=== PATIENT | female | born 1965 | race Caucasian/White ===

== ENCOUNTER → 2016-05-24 | Outpatient (CLI) | payer OTHER ==
[~2016-05-24] MED LIST: ACT30 PO; CHOL100010 PO; CRG25 PO; FRS/40 PO; LISI40TA PO; NVLGI SC; PANT40TA PO; [UNRECOGNIZED DRUG - OTHER] SQ
[2016-05-24 16:57] LABS: BLOOD UREA NITROGEN 14 mg/dl (7-18); BUN/CREATININE RATIO 18.9 (10-20); CALCIUM 8.5 mg/dl (8.5-10.1); CARBON DIOXIDE 28 mmol/L (21-32); CHLORIDE 101 mmol/L (98-107); CREATININE 0.72 mg/dl (0.60-1.20); GLUCOSE 256 mg/dl (70-99); POTASSIUM 3.6 mmol/L (3.5-5.1); SODIUM 139 mmol/L (136-145)
[2016-05-24 17:03] LABS: INR 2.1 (0.9-1.1); PROTHROMBIN TIME (PATIENT) 22.9 SECONDS (9.0-12.0)
[2016-05-24 17:04] LABS: ALKALINE PHOSPHATASE 88 U/L (45-117); ALT/SGPT 24 U/L (12-78); AST/SGOT 15 U/L (15-37)
[2016-05-25 06:02] LABS: ESTIMATED AVERAGE GLUCOSE 255 mg/dl; HA1C FLAG Normal (Normal)
== END | disposition home or self-care (01) ==
LOC: C.LABPBG 12:32
PROVIDERS: ATTEND Family Medicine
DX: E11.9 Type 2 diabetes mellitus without complications (principal); D68.59 Other primary thrombophilia

== ENCOUNTER → 2016-05-28 | Outpatient (CLI) | payer OTHER ==
--- NOTE | 2016-05-28 12:16 | DIAGNOSTIC IMAGING REPORT ---
THYROID ULTRASOUND HISTORY: Mass NECK MASS COMPARISON: None. FINDINGS: Right lobe: Maximum dimension 5.4 cm. Multinodular configuration. Nonspecific nodules measure up to 1.1 cm. Left lobe: Maximum dimension 5.1 cm. Multinodular configuration. Maximum dimension is 1.2 cm. Isthmus: No nodules. IMPRESSION: Findings consistent with a multinodular thyroid. No evidence for mass or collection at the patient's region of the palpable nodularity Electronically signed by: Donta Rowan M.D. 05/28/2016 12:14 PM Dictated Date/Time: 05/28/2016 12:12 PM
== END | disposition home or self-care (01) ==
LOC: C.ULTR 11:07
PROVIDERS: ATTEND Family Medicine
DX: R22.1 Localized swelling, mass and lump, neck (principal)

== ENCOUNTER → 2017-01-24 | Outpatient (CLI) | payer OTHER ==
[2017-01-24 20:05] LABS: BASO % 0.5 %; BASO ABS # 0.05 K/uL (0-0.2); COMPLETE YES; EOS % 1.6 %; HEMATOCRIT 43.8 % (37-47); IG% 0.3 %; LYMPH % 32.1 %; LYMPH ABS # 3.27 K/uL (1.2-3.4); MEAN CELL VOLUME 92.4 fL (80-100); MEAN CORPUSCULAR HEMOGLOBIN 31.2 pg (25-34); MEAN CORPUSCULAR HGB CONC 33.8 g/dl (32-36); MEAN PLATELET VOLUME 8.7 fL (7.4-10.4); MONO % 6.4 %; NEUT % 59.1 %; PLATELET COUNT 241 K/uL (130-400); RED BLOOD COUNT 4.74 M/uL (4.2-5.4)
== END | disposition home or self-care (01) ==
LOC: C.LAB 19:42
PROVIDERS: ATTEND Family Medicine
DX: J02.9 Acute pharyngitis, unspecified (principal)

== ENCOUNTER 2020-01-24 11:55 | Observation (INO) ==
--- NOTE | 2020-01-24 12:47 | Emergency Department Note ---
Impression & Plan Acute CVA (cerebrovascular accident), Left leg weakness ED Provider Note NAME: NIK WEBSTER AGE: 54 SEX: F : 1965 ARRIVES VIA: Walk-In INFORMANT: Patient, ED PROVIDER(S): Romeo Duque MD Chief Complaint: Left-sided weakness HPI: Patient does present with concern for left-sided weakness. The patient sta andi that this began on Friday evening she was driving a car. The patient states that she has had some ambulatory as dysfunction since then. Patient does have a prior history of stroke and states that she had comprehension issues at that time the patient is on Coumadin for history of stroke as well as a history of DVT. Patient denies any fevers, chest pains, shortness of breath, nausea or vomiting. Patient denies any known tick bites or history of Lyme's. The patient denies any recent falls head or neck pain. The patient denies any sensory deficits but does feel weak in her left upper and lower extremities. ROS: See HPI for pertinent positives and negatives. A total of 10 systems were reviewed and otherwise negative. Past medical history: See below Surgical history: See below Social history: See below Physical Exam: GENERAL: Wearing glasses and a mask. NAD, non-toxic. EYE EXAM: Normal conjunctiva. PERRL, no anisocoria and EOM's grossly intact w/o pain. [OROPHARYNX: Moist mucus membranes. Grossly normal dentition. [No exudate, posterior pharynx is clear, no tonsillar/uvular deviation or swelling. No cervical adenopathy, no submental, submandibular, or sublingual swelling.]] NECK: Supple, no nuchal rigidity, no adenopathy, non-tender. No signs of meningismus. [FROM of the neck with good chin to chest and neck extension. No stridor.] LUNGS: Clear to auscultation. Normal chest wall mechanics. HEART: NSR, no MRG. ABDOMEN: Abdomen soft, non-tender, normo-active bowel sounds, no masses, no rebound or guarding. BACK: No CVA TTP. SKIN: No rashes and no bruising. UPPER EXTREMITIES: Upper extremities are grossly normal. LOWER EXTREMITIES: Grossly normal, no edema. NEURO EXAM: A&O x3, cranial nerves II-XII grossly intact, normal speech, moves all 4 extremities with what appears to be normal bilateral upper extremity strength but does have right greater than left lower extremity strength. 4-5 left lower extremity and 5 out of 5 right lower extremity strength. Differential diagnoses: Infection, dehydration, metabolic abnormality, hypo/hyperglycemia, electrolyte disturbance, anemia, hypoxia, cardiac sources, intracerebral event, toxicologic, neurologic, as well as other pathologies. Course: Patient was seen and evaluated the bedside. Full history physical exam was performed. EKG: Indication: Stroke work-up Normal sinus rhythm, rate of 79, normal intervals, normal axis, no ST changes or T WI. Imaging Studies: Radiology results as stated below per my review in the radiologist's interpretation: NECK CTA HISTORY: Left-sided weakness. Stroke evaluation TECHNIQUE: Multiaxial CT images of the neck were performed following the intravenous administration of contrast to evaluate the major cervical vessels. Maximum intensity projection images were also obtained. All measurements were calculated based on NASCET criteria. A dose lowering technique was utilized adhering to the principles of ALARA. COMPARISON STUDY: None. FINDINGS: The aortic arch and proximal great vessels are widely patent. There is no significant stenosis, occlusion, or dissection identified within the bilateral common carotid, internal carotid, or vertebral arteries. Incidental note is made of a 1 cm left thyroid nodule. IMPRESSION: No significant stenosis, occlusion, or dissection identified within the carotid or vertebral arteries. ACT 112: Negative or not required by law. Electronically signed by: Vicente Ley M.D. 01/24/2020 2:24 PM Dictated: 01/24/20 1416 Transcribed: 01/24/20 1416 CTA ANGIOGRAPHY OF THE HEAD CLINICAL HISTORY: Stroke evaluation. COMPARISON STUDY: MRI of the brain July 22, 2005. TECHNIQUE: Helical axial images of the head were obtained following uneventful intravenous administration of Optiray 320. Sagittal and coronal reconstructions were viewed as well as maximal intensity projections on an independent 3-D workstation. Automated exposure control was utilized for the study. A dose lowering technique was utilized adhering to the principles of ALARA. FINDINGS: No acute intracranial hemorrhage, midline shift or mass effect is present. Brain volume is normal. Ventricular system is normal. Basilar cisterns are patent. There are no extra axial collections. Note is made of severe multifocal stenoses within the right cavernous carotid. Right A1 segment is diminutive. No central vessel occlusion is identified. The left M1, M2, A1 and A2 segments are patent. Posterior circulation is intact. There is no intracranial aneurysm. There is extensive plaque within the bilateral cavernous carotids. IMPRESSION: 1. Severe multifocal stenoses within the right cavernous carotid. Extensive plaque within the bilateral cavernous carotids. 2. No central vessel occlusion. No intracranial aneurysm. 3. Diminutive right A1 and left A2 segments. ACT 112: Negative or not required by law. Electronically signed by: Papito Carr M.D. 01/24/2020 2:30 PM Dictated: 01/24/20 1414 Transcribed: 01/24/[address] head/brain wo con CLINICAL HISTORY: Stroke evaluation LEFT-SIDED WEAKNESS. COMPARISON STUDY: No previous studies for comparison. TECHNIQUE: Axial CT of the brain is performed from the vertex to the skull base. IV contrast was not administered for this examination. A dose lowering technique was utilized adhering to the principles of ALARA. CT DOSE: FINDINGS: No intra or extra-axial mass lesions are visualized. There is no CT evidence of acute cortical infarction. There is no evidence of midline shift. There is no acute hemorrhage. No calvarial fractures are visualized. There are patchy white matter hypodensities likely on a small vessel basis. There is no evidence of pathologic ventricular dilatation. There is no evidence of acute sinusitis IMPRESSION: No acute intracranial findings ACT 112: Negative or not required by law. Electronically signed by: Tylor Louis M.D. 01/24/2020 2:15 PM Dictated: 01/24/201413 Transcribed: 01/24/20 [id number] Cardiac monitoring: An order was placed for continuous cardiac monitoring. The monitor shows a rate of 77 with sinus rhythm. MDM: Patient does present with left lower extremity weakness on exam but does feel left-sided weakness that has been ongoing since Friday. The patient's CT of the head is negative. CT angiography of the head neck does show multifocal stenoses of the right cavernous carotid as well as diminutive right A1 and left A2 segments. Given this and the patient's weakness I did speak with the on-call vascular specialist limit our check PA-C who stated that given the location this was not something that they would be able to manage if it required intervention. I did speak with general neurology Dr. Blanco of neurology at [facility]. He stated that again given the location and chronicity is unlikely to be something that would be intervened upon as it has not been shown to improve symptoms given the delayed presentation. He kindly reviewed the studies himself and still rec ommended the same. He did recommend a baby aspirin for the next 3 weeks. I did convey this to the hospitalist and the patient was admitted by Dr. Ryan. Patient has no white count H&H and platelet count. The patient's kidney function is unremarkable. Slightly subtherapeutic with an INR 1.8. Troponin not detectable. Lyme's negative. Rapid Covid and negative. Past Med/Surg History Medical History Acid reflux Anxiety Asthma DM (diabetes mellitus) HTN (hypertension) Social History Smoking Status: Never smoker Tobacco Type: Cigarettes Feels Safe at Home: Yes Allergies Allergies Allergy/AdvReac Type Severity Reaction Status Date / Time Penicillins Allergy Unknown RASH Verified 01/24/20 14:40 adhesive AdvReac Unknown RASH Verified 01/24/20 14:40 losartan AdvReac Unknown PARANOID Verified 01/24/20 14:40 Home Meds Home Medications Medication Instructions Recorded Confirmed carvedilol 25 mg PO DAILY #0 10/30/10 01/24/20 cholecalciferol (vitamin D3) 50 mcg PO DAILY #0 10/30/10 01/24/20 furosemide 40 mg PO DAILY #0 10/30/10 01/24/20 insulin detemir U-100 [Levemir 55 unit SUBCUT HS #0 10/30/10 01/24/20 U-100 Insulin] lisinopril 40 mg PO DAILY #0 10/30/10 01/24/20 pantoprazole 40 mg PO DAILY #30 10/30/10 01/24/20 carvedilol 12.5 mg PO DAILY 01/24/20 01/24/20 fluoxetine 40 mg PO DAILY 01/24/20 01/24/20 insulin lispro protamin-lispro 55 unit SUBCUT HS 01/24/20 01/24/20 [Humalog Mix 50-50 Insuln U-100] metformin 1,000 mg PO DAILY 01/24/20 01/24/20 venlafaxine 37.5 mg PO DAILY 01/24/20 01/24/20 warfarin [Jantoven] 5 mg PO DAILY 01/24/20 01/24/20 Results & Data (ED) Vital Signs Vital Signs - 24 hr 01/24/20 12:07 01/24/20 12:40 01/24/20 12:56 Temperature 36.9 C Temperature Source Oral Pulse Rate 82 76 77 Pulse Rate from SpO2 Sensor 77 77 Respiratory Rate 20 16 15 Respiratory Effort / Characteristics Non-Labored Respiratory Depth Normal Blood Pressure 165/94 H 166/85 H Blood Pressure Mean 117 104 Pulse Oximetry 94 96 96 Oxygen Delivery Method Room Air Sepsis Recent Fever Within 48 Hours No Sepsis New/Unexplained Change in Mental Status N/A Sepsis Action Taken by Nursing No Action Required 01/24/20 13:00 01/24/20 13:30 01/24/20 16:09 Temperature Temperature Source Pulse Rate 77 71 Pulse Rate from SpO2 Sensor 77 72 83 Respiratory Rate 15 15 Respiratory Effort / Characteristics Respiratory Depth Blood Pressure 158/98 H 180/100 H Blood Pressure Mean 113 114 Pulse Oximetry 97 95 96 Oxygen Delivery Method Sepsis Recent Fever Within 48 Hours Sepsis New/Unexplained Change in Mental Status Sepsis Action Taken by Nursing 01/24/20 16:30 01/24/20 17:00 01/24/20 17:30 Temperature Temperature Source Pulse Rate 79 86 80 Pulse Rate from SpO2 Sensor 79 Respiratory Rate 13 13 17 Respiratory Effort / Characteristics Respiratory Depth Blood Pressure 177/78 H 181/100 H Blood Pressure Mean 127 129 Pulse Oximetry 95 Oxygen Delivery Method Sepsis Recent Fever Within 48 Hours Sepsis New/Unexplained Change in Mental Status Sepsis Action Taken by Nursing 01/24/20 18:00 Temperature Temperature Source Pulse Rate 77 Pulse Rate from SpO2 Sensor Respiratory Rate 19 Respiratory Effort / Characteristics Respiratory Depth Blood Pressure Blood Pressure Mean Pulse Oximetry Oxygen Delivery Method Sepsis Recent Fever Within 48 Hours Sepsis New/Unexplained Change in Mental Status Sepsis Action Taken by Skilled Nursing Medications Current Medication List: was personally reviewed by me Laboratory Data Attestation: I reviewed the patient's lab results. Result diagrams: 01/24/20 12:41 01/24/20 12:41 Lab Results 01/24/20 01/24/20 01/24/20 Range/Units 12:41 12:41 12:41 WBC 10.32 (4.8-10.8) K/uL RBC 5.16 (4.2-5.4) M/uL Hgb 15.6 (12.0-16.0) g/dL Hct 47.0 (37-47) % MCV 91.1 (80-100) fL MCH 30.2 (25-34) pg MCHC 33.2 (32-36) g/dL RDW Std Deviation 45.9 (36.4-46.3) fL RDW Coeff of Tolu 13.9 (11.5-14.5) % Plt Count 254 (130-400) K/uL MPV 8.8 (7.4-10.4) fL Immature Gran % (Auto) 0.3 % Neut % (Auto) 65.9 % Lymph % (Auto) 26.5 % Humphreys % (Auto) 6.4 % Eos % (Auto) 0.7 % Baso % (Auto) 0.2 % Neut # (Auto) 6.81 H (1.4-6.5) K/uL Lymph # (Auto) 2.73 (1.2-3.4) K/uL Humphreys # (Auto) 0.66 H (0.11-0.59) K/uL Eos # (Auto) 0.07 (0-0.5) K/uL Baso # (Auto) 0.02 (0-0.2) K/uL Immature Gran # (Auto) 0.03 H (0.00-0.02) K/uL PT 18.5 H (9.0-12.0) Seconds INR 1.8 H (0.9-1.1) APTT 31.1 H (21.0-31.0) Seconds PTT Ratio 1.1 Sodium 138 (136-145) mmol/L Potassium 3.7 (3.5-5.1) mmol/L Chloride 102 (98-107) mmol/L Carbon Dioxide 28 (21-32) mmol/L Anion Gap 8.0 (3-11) BUN 13 (7-18) mg/dl Creatinine 0.87 (0.6-1.2) mg/dl Est Cr Clr Drug Dosing Not Reportable Est GFR ( Amer) 87.5 Est GFR (Non-Af Amer) 75.5 BUN/Creatinine Ratio 15.4 (10-20) Glucose 299 H (70-99) mg/dl Calcium 9.0 (8.5-10.1) mg/dl Magnesium 1.8 (1.8-2.4) mg/dl Total Bilirubin 0.7 (0.2-1) mg/dl AST 15 (15-37) U/L ALT 23 (12-78) U/L Alkaline Phosphatase 105 (45-117) U/L Troponin I < 0.015 (0-0.045) ng/ml Total Protein 7.1 (6.4-8.2) gm/dl Albumin 3.2 L (3.4-5.0) gm/dl Globulin 3.9 (2.5-4.0) gm/dl Albumin/Globulin Ratio 0.8 L (0.9-2) Lyme Disease IgG Ab (Negative) Lyme Disease IgM Ab (Negative) SARS-CoV-2 Ag (Rapid) (Negative) 01/24/20 01/24/20 Range/Units 12:41 16:40 WBC (4.8-10.8) K/uL RBC (4.2-5.4) M/uL Hgb (12.0-16.0) g/dL Hct (37-47) % MCV (80-100) fL MCH (25-34) pg MCHC (32-36) g/dL RDW Std Deviation (36.4-46.3) fL RDW Coeff of Tolu (11.5-14.5) % Plt Count (130-400) K/uL MPV (7.4-10.4) fL Immature Gran % (Auto) % Neut % (Auto) % Lymph % (Auto) % Humphreys % (Auto) % Eos % (Auto) % Baso % (Auto) % Neut # (Auto) (1.4-6.5) K/uL Lymph # (Auto) (1.2-3.4) K/uL Humphreys # (Auto) (0.11-0.59) K/uL Eos # (Auto) (0-0.5) K/uL Baso # (Auto) (0-0.2) K/uL Immature Gran # (Auto) (0.00-0.02) K/uL PT (9.0-12.0) Seconds INR (0.9-1.1) APTT (21.0-31.0) Seconds PTT Ratio Sodium (136-145) mmol/L Potassium (3.5-5.1) mmol/L Chloride (98-107) mmol/L Carbon Dioxide (21-32) mmol/L Anion Gap (3-11) BUN (7-18) mg/dl Creatinine (0.6-1.2) mg/dl Est Cr Clr Drug Dosing Est GFR ( Amer) Est GFR (Non-Af Amer) BUN/Creatinine Ratio (10-20) Glucose (70-99) mg/dl Calcium (8.5-10.1) mg/dl Magnesium (1.8-2.4) mg/dl Total Bilirubin (0.2-1) mg/dl AST (15-37) U/L ALT (12-78) U/L Alkaline Phosphatase (45-117) U/L Troponin I (0-0.045) ng/ml Total Protein (6.4-8.2) gm/dl Albumin (3.4-5.0) gm/dl Globulin (2.5-4.0) gm/dl Albumin/Globulin Ratio (0.9-2) Lyme Disease IgG Ab Negative (Negative) Lyme Disease IgM Ab Negative (Negative) SARS-CoV-2 Ag (Rapid) Negative (Negative) Administered Medications Discontinued Medications Aspirin (Aspirin Chew 324 Mg) 81 mg PO NOW STA Stop: 01/24/20 15:38 Last Admin: 01/24/20 16:10 Dose: 81 mg Documented by: [id number] Ioversol (Optiray 320 125ml) 120 ml IV ONCE ONE Stop: 01/24/20 14:04 Last Admin: 01/24/20 14:04 Dose: 120 ml Documented by: [id number] Warfarin Sodium (Warfarin Sod 5 Mg Tab) 5 mg PO ONE STA Stop: 01/24/20 17:02 Last Admin: 01/24/20 18:11 Dose: 5 mg Documented by: [id number] Discharge Plan Visit Data Chief Complaint: Neuro Symptoms/Deficit Stated Complaint: WEAKNESS ON LEFT SIDE,HYPERGLYCEMIA ED Provider: Romeo Duque Discharge Problem: Acute CVA (cerebrovascular accident), Left leg weakness Patient Disposition: Admitted As Inpatient Discharge Instructions Interventions: ED Discharge Assessment Last Done: 01/24/20 18:36 Forms Stand Alone Forms: [employer] Prescriptions Prescriptions: No Action furosemide 40 mg Tablet 40 mg PO DAILY Qty: 0 RF: 0 carvedilol 25 mg Tablet 25 mg PO DAILY Qty: 0 RF: 0 pantoprazole 40 mg Tablet,Delayed Release (Dr/Ec) 40 mg PO DAILY Qty: 30 RF: 0 lisinopril 40 mg Tablet 40 mg PO DAILY Qty: 0 RF: 0 Levemir U-100 Insulin 100 unit/mL Solution 55 unit SUBCUT HS Qty: 0 RF: 0 cholecalciferol (vitamin D3) 50 mcg (2,000 unit) Tablet 50 mcg PO DAILY Qty: 0 RF: 0 fluoxetine 40 mg capsule 40 mg PO DAILY RF: 0 carvedilol 25 mg tablet 12.5 mg PO DAILY RF: 0 venlafaxine 37.5 mg capsule,extended release 24hr 37.5 mg PO DAILY RF: 0 metformin 1,000 mg tablet 1,000 mg PO DAILY RF: 0 warfarin [Jantoven] 5 mg tablet 5 mg PO DAILY RF: 0 Humalog Mix 50-50 Insuln U-100 100 unit/mL (50-50) Suspension 55 unit SUBCUT HS RF: 0 Referrals Referrals: Veena Carney DO [Primary Care Provider] -
[2020-01-24 13:21] LABS: Basophils # (auto) 0.02 K/uL (0-0.2); Basophils % (auto) 0.2 %; Eosinophils # (auto) 0.07 K/uL (0-0.5); Eosinophils % (auto) 0.7 %; Hemoglobin 15.6 g/dL (12.0-16.0); Immature Granulocytes # (auto) 0.03 K/uL (0.00-0.02); Immature Granulocytes % (auto) 0.3 %; Lymphocytes # (auto) 2.73 K/uL (1.2-3.4); Lymphocytes % (auto) 26.5 %; Mean Corpuscular Hemoglobin 30.2 pg (25-34); Mean Corpuscular Hgb Conc 33.2 g/dL (32-36); Mean Corpuscular Volume 91.1 fL (80-100); Mean Platelet Volume 8.8 fL (7.4-10.4); Monocytes # (auto) 0.66 K/uL (0.11-0.59); Monocytes % (auto) 6.4 %; Neutrophils # (auto) 6.81 K/uL (1.4-6.5); Neutrophils % (auto) 65.9 %; Platelet Count 254 K/uL (130-400); RDW Coefficient of Variation 13.9 % (11.5-14.5); RDW Standard Deviation 45.9 fL (36.4-46.3); Red Blood Count 5.16 M/uL (4.2-5.4); White Blood Count 10.32 K/uL (4.8-10.8)
[2020-01-24 13:28] LABS: Alanine Aminotransferase 23 U/L (12-78); Albumin Level 3.2 gm/dl (3.4-5.0); Aspartate Aminotransferase 15 U/L (15-37); BUN Creatinine Ratio 15.4 (10-20); Blood Urea Nitrogen 13 mg/dl (7-18); Carbon Dioxide 28 mmol/L (21-32); Chloride 102 mmol/L (98-107); Est GFR (African American) 87.5; Est GFR (Non-African American) 75.5; Glucose 299 mg/dl (70-99); Magnesium 1.8 mg/dl (1.8-2.4); Potassium 3.7 mmol/L (3.5-5.1); Sodium 138 mmol/L (136-145)
[2020-01-24 13:31] LABS: INR 1.8 (0.9-1.1); Partial Thromboplastin Ratio 1.1; Partial Thromboplastin Time 31.1 Seconds (21.0-31.0); Prothrombin Time 18.5 Seconds (9.0-12.0)
[2020-01-24 13:33] LABS: Albumin Globulin Ratio 0.8 (0.9-2); Alkaline Phosphatase 105 U/L (45-117); Bilirubin,Total 0.7 mg/dl (0.2-1); Globulin 3.9 gm/dl (2.5-4.0); Total Protein 7.1 gm/dl (6.4-8.2); Troponin I < 0.015 ng/ml (0-0.045)
[2020-01-24 14:03] LABS: Lyme Ab IgG w/WB Rflx Negative (Negative); Lyme Ab IgM w/WB Rflx Negative (Negative)
[2020-01-24] MEDS ORDERED: OPTIRAY 320 125ml IV ONE (14:03)
--- NOTE | 2020-01-24 14:17 | CT Scan Report ---
CT head/brain wo con CLINICAL HISTORY: Stroke evaluation LEFT-SIDED WEAKNESS. COMPARISON STUDY: No previous studies for comparison. TECHNIQUE: Axial CT of the brain is performed from the vertex to the skull base. IV contrast was not administered for this examination. A dose lowering technique was utilized adhering to the principles of ALARA. CT DOSE: FINDINGS: No intra or extra-axial mass lesions are visualized. There is no CT evidence of acute cortical infarc tion. There is no evidence of midline shift. There is no acute hemorrhage. No calvarial fractures ar e visualized. There are patchy white matter hypodensities likely on a small vessel basis. There is no evidence of pathologic ventricular dilatation. There is no evidence of acute sinusitis IMPRESSION: No acute intracranial findings ACT 112: Negative or not required by law. Electronically signed by: Tylor Louis M.D. 01/24/2020 2:15 PM
--- NOTE | 2020-01-24 14:25 | CT Scan Report ---
NECK CTA HISTORY: Left-sided weakness. Stroke evaluation TECHNIQUE: Multiaxial CT images of the neck were performed following the intravenous administration o f contrast to evaluate the major cervical vessels. Maximum intensity projection images were also obta ined. All measurements were calculated based on NASCET criteria. A dose lowering technique was utili zed adhering to the principles of ALARA. COMPARISON STUDY: None. FINDINGS: The aortic arch and proximal great vessels are widely patent. There is no significant sten osis, occlusion, or dissection identified within the bilateral common carotid, internal carotid, or v ertebral arteries. Incidental note is made of a 1 cm left thyroid nodule. IMPRESSION: No significant stenosis, occlusion, or dissection identified within the carotid or vertebral arteries . ACT 112: Negative or not required by law. Electronically signed by: Vicente Ley M.D. 01/24/2020 2:24 PM
--- NOTE | 2020-01-24 14:31 | CT Scan Report ---
CTA ANGIOGRAPHY OF THE HEAD CLINICAL HISTORY: Stroke evaluation. COMPARISON STUDY: MRI of the brain July 22, 2005. TECHNIQUE: Helical axial images of the head were obtained following uneventful intravenous administr ation of Optiray 320. Sagittal and coronal reconstructions were viewed as well as maximal intensity p rojections on an independent 3-D workstation. Automated exposure control was utilized for the study. A dose lowering technique was utilized adhering to the principles of ALARA. FINDINGS: No acute intracranial hemorrhage, midline shift or mass effect is present. Brain volume is normal. Ventricular system is normal. Basilar cisterns are patent. There are no extra axial collectio ns. Note is made of severe multifocal stenoses within the right cavernous carotid. Right A1 segment i s diminutive. No central vessel occlusion is identified. The left M1, M2, A1 and A2 segments are ricks nt. Posterior circulation is intact. There is no intracranial aneurysm. There is extensive plaque wit hin the bilateral cavernous carotids. IMPRESSION: 1. Severe multifocal stenoses within the right cavernous carotid. Extensive plaque within the bilater al cavernous carotids. 2. No central vessel occlusion. No intracranial aneurysm. 3. Diminutive right A1 and left A2 segments. ACT 112: Negative or not required by law. Electronically signed by: Papito Carr M.D. 01/24/2020 2:30 PM
[2020-01-24] MEDS ORDERED: ASPIRIN CHEW 324 MG PO STA (15:37)
--- NOTE | 2020-01-24 16:01 | Electrocardiogram Report ---
Test Reason : Blood Pressure : / mmHG Vent. Rate : 079 BPM Atrial Rate : 079 BPM P-R Int : 154 ms QRS Dur : 082 ms QT Int : 420 ms P-R-T Axes : 053 009 057 degrees QTc Int : 481 ms Normal sinus rhythm Septal infarct , age undetermined Abnormal ECG When compared with ECG of 30-OCT-2010 18:32, Premature ventricular complexes are no longer Present Septal infarct is now Present Confirmed by Flo De La Cruz ([id number]) on 01/24/2020 4:01:07 PM Referred By: Veena Carney Confirmed By:Flo De La Cruz
--- NOTE | 2020-01-24 16:37 | History & Physical Report ---
Date of Service January 24, 2020 Assessment & Plan (1) CVA (cerebral vascular accident): Suspected - refused MRI due to anxiety, may have to be arranged outpatient at 611. TTE HbA1C and lipid panel in AM Start ASA 81mg PO daily Start atorvastatin 40 mg p.o. at bedtime Consult neurology (2) Thyroid nodule: Incidental pickup on CT scan of left thyroid nodule. Will get TSH +/- free T4 with AM labs. Follow-up with PCP. (3) DM (diabetes mellitus): Notably uncontrolled and patient taking medication as she wishes - takes both 50/50 and Lantus in the evening. HbA1c with a.m. labs. Hold Metformin due to IV contrast given for CTA Split lantus to 40 units BID Novolog: Goal BSG Range: Low 110 mg/dL, High 140 mg/dL Correction Factor: 10 mg/dL/unit INS:CHO Ratio: 1unit per 4 gms CHO consumed (4) HTN (hypertension): Continue lisinopril 40 mg p.o. daily, Lasix 40 mg p.o. daily, hydralazine as needed for systolic blood pressure greater than 180. (5) Acid reflux: Continue pantoprazole 40 mg p.o. daily (6) Anxiety: Continue venlafaxine and fluoxetine. (7) DVT prophylaxis: INR 1.8. Continue her usual warfarin dosing. Admission and Anticipated Discharge Date Admission Date: 01/24/2020 History of Present Illness Primary Care Provider: DO Rayne Perla Geoff is a 54 year old female who presents to the ER with left sided weakness. She reports her symptoms started on Friday. Initially found it hard to get out of the car after driving. Then noticed it was harder to get her left leg over the side of the bathtub. After this she has noticed her walking has been getting progressively worse and her daughter's boyfriend caught her 3 times yesterday. Reports feeling like her bones just disappear out of her left leg while walking. She denies any new numbness or pain (chronic diabetic neuropathy in fingers and toes). No change in speech/hearing/vision. She notes a prior "mini-stroke" 15 years ago with associated post cardiomyopathy which caused her memory and thinking to be impaired for around 6 months. Other than this no history of stroke or CVA. In the ER Head CTA concerning for severe multifocal stenosis in the right cavernous carotid and extensive plaque within the bilateral cavernous carotids. ER physician discussed this with neurology at [place] and reports no intervention required. Clearly outside of the range for TPA and contraindicated with warfarin use. Recommended aspirin 81 mg p.o. daily for 3 weeks. Allergies Allergy/AdvReac Type Severity Reaction Status Date / Time Penicillins Allergy Unknown RASH Verified 01/24/20 14:40 adhesive AdvReac Unknown RASH Verified 01/24/20 14:40 losartan AdvReac Unknown PARANOID Verified 01/24/20 14:40 Home Medications Medication Instructions Recorded Confirmed Type carvedilol 25 mg PO DAILY #0 10/30/10 01/24/20 History cholecalciferol (vitamin D3) 50 mcg PO DAILY #0 10/30/10 01/24/20 History furosemide 40 mg PO DAILY #0 10/30/10 01/24/20 History insulin detemir U-100 [Levemir 55 unit SUBCUT HS #0 10/30/10 01/24/20 History U-100 Insulin] lisinopril 40 mg PO DAILY #0 10/30/10 01/24/20 History pantoprazole 40 mg PO DAILY #30 10/30/10 01/24/20 History carvedilol 12.5 mg PO DAILY 01/24/20 01/24/20 History fluoxetine 40 mg PO DAILY 01/24/20 01/24/20 History insulin lispro protamin-lispro 55 unit SUBCUT HS 01/24/20 01/24/20 History [Humalog Mix 50-50 Insuln U-100] metformin 1,000 mg PO DAILY 01/24/20 01/24/20 History venlafaxine 37.5 mg PO DAILY 01/24/20 01/24/20 History warfarin [Jantoven] 5 mg PO DAILY 01/24/20 01/24/20 History Past Med/Surg History Medical History Acid reflux Anxiety Asthma DM (diabetes mellitus) HTN (hypertension) Social History Smoking Status: Never smoker Tobacco Type: Cigarettes Second Hand Exposure: Yes; Do You Dip or Chew Tobacco: No; Tobacco Cessation Education Requested by Patient: No Hx Alcohol Use: No Hx Substance Use: No Preferred Language: Jamaican Communication Ability: Effective Equities Trader Required: No Beliefs That Will Affect Care: None Current Living Situation: Spouse Feels Safe at Home: Yes Safety Concerns: Feels Safe At This Time Assistive Devices: None Review of Systems Review of Systems: All systems reviewed & are unremarkable except as noted in HPI & below Physical Exam Constitutional: well developed and well nourished; no acute distress Eyes: PERRL, conjunctivae normal, anicteric sclerae normal visual beltrán by confrontation and EOM intact bilaterally; no nystagmus ENMT: external ear and nose normal, oropharynx normal Neck: trachea midline, no thyromegaly Respiratory: normal respiratory effort, lungs clear to auscultation Cardiovascular: RRR, no murmur, no edema Gastrointestinal (Abdomen): normal bowel sounds, soft, nontender, no hepatosplenomegaly Musculoskeletal: no cyanosis or clubbing, extremities motor strength 5/5 Skin: no rashes, warm and dry Neurologic: moves all extremities, + focal motor deficit (Left hip flexion 4/5, knee flex ext 4/5, otherwise b/l LE 5/5) and awake; not confused Speech / Cognition: normal speech, no expressive aphasia and no receptive aphasia Motor/Sensory: + pronator drift (mild on left side); no tremor and no sensory deficit Cranial Nerves: PERRL, normal accommodation, EOM intact bilaterally, normal facial strength, tongue midline, able to rotate head bilaterally, able to elevate shoulders bilaterally, no nystagmus and symmetric palate elevation Psychiatric: A+Ox3, euthymic affect Results & Data Results & Data ([facility]) Vital Signs (Past 12 Hours) Vital Signs Temp Pulse Resp BP Pulse Ox 01/24/20 12:07 36.9 C 82 20 165/[address] head/brain wo con IMPRESSION: No acute intracranial findings CTA ANGIOGRAPHY OF THE HEAD IMPRESSION: 1. Severe multifocal stenoses within the right cavernous carotid. Extensive plaque within the bilateral cavernous carotids. 2. No central vessel occlusion. No intracranial aneurysm. 3. Diminutive right A1 and left A2 segments. NECK CTA IMPRESSION: No significant stenosis, occlusion, or dissection identified within the carotid or vertebral arteries. Medications Administered ER medications given: Aspirin 81 mg p.o. ECG Indication: other (Suspected CVA) Rate (beats per minute): 79 Rhythm: normal sinus Findings: no acute ischemic change Comparison ECG Date: from (October 30, 2010) Change: the following changes noted (PVCs no longer present) Code Status & VTE Plan Code Status Full VTE Prophylaxis Plan VTE Prophylaxis will be ordered: Yes PG Care Time/CCT Total # of Minutes Spent Total Time Spent with Patient: Total time spent is greater than 50% in coordination of care (as documented) at patient's floor/unit and/or counseling patient: Coding Level of Care Code 70064 OBS Care - Level 3 Diagnoses CVA (cerebral vascular accident) I63.9 Thyroid nodule E04.1 DM (diabetes mellitus) E11.9 HTN (hypertension) I10 Acid reflux K21.9 Anxiety F41.9 DVT prophylaxis Z29.9
[2020-01-24] MEDS ORDERED: WARFARIN SOD 5 MG TAB PO STA (17:01)
[2020-01-24] MEDS ORDERED: ACETAMINOPHEN 325 MG TAB PO PRN (19:33)
[2020-01-24] MEDS ORDERED: PHARMACIST DISCHARGE MED REC CONSULT PRN (19:33)
[2020-01-24] MEDS ORDERED: CARBOHYDRATES FOR HYPOGLYCEMIA PO PRN (19:33)
[2020-01-24] MEDS ORDERED: DEXTROSE 50% 50 ML SYRINGE IV PRN (19:33)
[2020-01-24] MEDS ORDERED: GLUCOSE 10 TABS/TUBE PO PRN (19:33)
[2020-01-24] MEDS ORDERED: POLYETHYLENE (MIRALAX) 17 GM PACK PO PRN (19:33)
[2020-01-24] MEDS ORDERED: GLUCAGON FOR INJ 1 MG VIAL SQ PRN (19:33)
[2020-01-24] MEDS ORDERED: GLUCOSE 40% GEL 15 GM TUBE PO PRN (19:33)
[2020-01-24] MEDS ORDERED: hydrALAZINE HCL 20 MG/ML VIAL IV PRN (20:52)
[2020-01-24] MEDS ORDERED: ATORVASTATIN 40 MG TAB PO SCH (21:00)
[2020-01-24] MEDS ORDERED: lisinopril 40 MG TAB PO SCH (21:00)
[2020-01-24] MEDS ORDERED: VENLAFAXINE HCL XR 37.5 MG CAPXR PO SCH (21:00)
[2020-01-24] MEDS: carvediloL 25 MG TAB PO SCH (21:07)
[2020-01-24] MEDS: INSULIN GLARGINE SOLOSTAR 100 UNITS/ML 3 ML PEN SC SCH (21:07)
[2020-01-24] MEDS: INSULIN ASPART 100 UNITS/ML 3 ML PEN SC SCH (21:09)
[2020-01-25 07:28] LABS: Estimated Average Glucose 283 mg/dl; Hemoglobin A1C 11.5 % (4.5-5.6)
[2020-01-25 07:29] LABS: Basophils # (auto) 0.03 K/uL (0-0.2); Basophils % (auto) 0.3 %; Eosinophils # (auto) 0.12 K/uL (0-0.5); Eosinophils % (auto) 1.3 %; Hematocrit (blood only) 43.9 % (37-47); Hemoglobin 14.6 g/dL (12.0-16.0); Immature Granulocytes # (auto) 0.03 K/uL (0.00-0.02); Immature Granulocytes % (auto) 0.3 %; Lymphocytes # (auto) 2.83 K/uL (1.2-3.4); Lymphocytes % (auto) 31.8 %; Mean Corpuscular Hemoglobin 30.4 pg (25-34); Mean Corpuscular Hgb Conc 33.3 g/dL (32-36); Mean Corpuscular Volume 91.3 fL (80-100); Mean Platelet Volume 8.5 fL (7.4-10.4); Monocytes # (auto) 0.54 K/uL (0.11-0.59); Monocytes % (auto) 6.1 %; Neutrophils # (auto) 5.36 K/uL (1.4-6.5); Neutrophils % (auto) 60.2 %; Platelet Count 243 K/uL (130-400); RDW Coefficient of Variation 13.9 % (11.5-14.5); RDW Standard Deviation 46.2 fL (36.4-46.3); Red Blood Count 4.81 M/uL (4.2-5.4); White Blood Count 8.91 K/uL (4.8-10.8)
[2020-01-25 07:36] LABS: INR 1.9 (0.9-1.1); Prothrombin Time 19.4 Seconds (9.0-12.0)
[2020-01-25] MEDS: INSULIN ASPART 100 UNITS/ML 3 ML PEN SC SCH ×2 (08:01→11:53)
[2020-01-25] MEDS: carvediloL 25 MG TAB PO SCH (08:01)
[2020-01-25] MEDS: INSULIN GLARGINE SOLOSTAR 100 UNITS/ML 3 ML PEN SC SCH (08:02)
[2020-01-25 08:04] LABS: BUN Creatinine Ratio 21.5 (10-20); Calcium 8.7 mg/dl (8.5-10.1); Creatinine Clr Calc Pharmacy 118.7 ml/min; Est GFR (African American) 116.1; Est GFR (Non-African American) 100.1; Potassium 3.4 mmol/L (3.5-5.1)
[2020-01-25 08:14] LABS: Thyroid Stimulating Hormone 1.04 uIu/ml (0.300-4.500)
[2020-01-25] MEDS ORDERED: PANTOprazole 40 MG TAB PO SCH (09:00)
[2020-01-25] MEDS ORDERED: ASPIRIN 81 MG ECTAB PO SCH (09:00)
[2020-01-25] MEDS ORDERED: FLUoxetine HCL 20 MG CAP PO SCH (09:00)
[2020-01-25] MEDS ORDERED: CHOLECALCIFEROL 1,000 UNITS 25 MCG TAB PO SCH (09:00)
[2020-01-25] MEDS ORDERED: FUROSEMIDE 40 MG TAB PO SCH (09:00)
--- NOTE | 2020-01-25 12:05 | XCELERA ---
[id number]
--- NOTE | 2020-01-25 13:27 | Neurology Consultation ---
Date of Consultation January 25, 2020 Assessment & Plan (1) HTN (hypertension): (2) DM (diabetes mellitus): (3) Stroke: Rayne Tellez is a 54 yo woman w/ PMH of anxiety, asthma, chronic warfarin usage, DM and HTN who p/t [facility] with acute onset of left sided weakness. Symptom localization: right lacunar Stroke mechanism: lacunar/lipohyalinosis Stroke WorkUp: - CT head: no hemorrhage, +hypodensity in the right internal capsule. - CTA head/neck: shows multifocal stenosis of the right cavernous ICA with notable intracranial atherosclerosis, no LVO, other high grade stenosis or aneurysm noted - MRI brain: pending (will get as an outpatient due to extreme claustrophobia, prefers [facility]) - TTE: EF 65-70%, mild LVH, mild MR, no PFO - Telemetry: pending - A1c: 11.5 - FLP: 137 - Troponin, TSH: negative, WNL Stroke Management: - Acute treatment: ASA - Continuous cardiac monitoring, 30 day event monitor as outpatient if telemetry here unrevealing - Vitals, Neurochecks, NIHSS per unit routine - BP parameters: SBP CAP 180, restart home anti-hypertensives, IV Labetalol/Hydralazine PRN for CAP - Obtain MRI brain to evaluate stroke burden (will obtain as an outpatient per patient request) - Consult speech, PT, OT for supportive management - Will counselor at law concerning stroke education, smoking cessation, healthy diet, physical activity, weight loss - Follow up with PCP for assistance with outpatient goals (BP <130/80, LDL <70, A1c <7) - Follow up in neurology clinic in 6-8 weeks Secondary Stroke Prevention: - Antiplatelet: not indicated (already on warfarin) - Anticoagulation: continue warfarin with goal INR 2.5-3 given h/o hypercoagulability - Statin: Atorvastatin 80mg daily HTN: - BP parameters, as above - Restart home medications with goal of lowering BP to normotension over next 3- 4 days FEN/GI: - Diet: Cardiac HH diet and PO meds given absence of bulbar signs or symptoms - Monitor lytes and replete PRN Glucose Control: - Sliding scale insulin and accuchecks per primary team to avoid hyperglycemia Thank you for this interesting consult. Plan of care was discussed with primary team. Please call with any questions. She is ok for discharge if cleared by PT; could consider home health PT if patient prefers this over rehab given home care situation. History of Present Illness Attending Physician: Cynthia Herman DO History of Present Illness Rayne Tellez is a 54 yo woman w/ PMH of anxiety, asthma, chronic warfarin usage, DM and HTN who p/t [facility] with acute onset of left sided weakness. 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 In the ED, patient afebrile, BP 165/94, HR 82, RR 20, satting 94% on room air. Labs notable for CBC WNL, BMP WNL, glucose 299, INR 1.8, LFTs WNL, troponin negative, Lyme negative, COVID negative. Imaging independently reviewed. CTH shows no hemorrhage, +hypodensity in the right internal capsule. CTA H&N shows multifocal stenosis of the right cavernous ICA with notable intracranial atherosclerosis, no LVO, other high grade stenosis or aneurysm noted. She received aspirin and was admitted for further workup. On examination, she reports that she was in her normal state of health until about 10:30pm on 01/22/20 when she had difficulty walking down stairs and getting in/out of the shower. She called her PCP on Friday morning about symptoms since they have persisted, and was told to come to the ED. Today, she reports that symptoms of left sided weakness have persisted. Denies any numbness, vision changes or speech difficulties. Denies any missed doses of warfarin. Reports that she had a stroke in her 40s and a DVT after that for which she is on warfarin for. Allergies Allergy/AdvReac Type Severity Reaction Status Date / Time Penicillins Allergy Unknown RASH Verified 01/24/20 14:40 adhesive AdvReac Unknown RASH Verified 01/24/20 14:40 losartan AdvReac Unknown PARANOID Verified 01/24/20 14:40 Home Medications Medication Instructions Recorded Confirmed Type carvedilol 25 mg PO DAILY #0 10/30/10 01/24/20 History cholecalciferol (vitamin D3) 50 mcg PO DAILY #0 10/30/10 01/24/20 History furosemide 40 mg PO DAILY #0 10/30/10 01/24/20 History insulin detemir U-100 [Levemir 55 unit SUBCUT HS #0 10/30/10 01/24/20 History U-100 Insulin] lisinopril 40 mg PO DAILY #0 10/30/10 01/24/20 History pantoprazole 40 mg PO DAILY #30 10/30/10 01/24/20 History carvedilol 12.5 mg PO DAILY 01/24/20 01/24/20 History fluoxetine 40 mg PO DAILY 01/24/20 01/24/20 History insulin lispro protamin-lispro 55 unit SUBCUT HS 01/24/20 01/24/20 History [Humalog Mix 50-50 Insuln U-100] metformin 1,000 mg PO DAILY 01/24/20 01/24/20 History venlafaxine 37.5 mg PO DAILY 01/24/20 01/24/20 History warfarin [Jantoven] 5 mg PO DAILY 01/24/20 01/24/20 History atorvastatin 40 mg PO HS #30 tab 01/25/20 Rx Patient History Medical History Acid reflux Anxiety Asthma DM (diabetes mellitus) HTN (hypertension) Social History Smoking Status: Never smoker Tobacco Type: Cigarettes Second Hand Exposure: Yes; Do You Dip or Chew Tobacco: No; Tobacco Cessation Education Requested by Patient: No Hx Alcohol Use: No Hx Substance Use: No Preferred Language: Malay Communication Ability: Effective Virologist Required: No Beliefs That Will Affect Care: None Current Living Situation: Spouse Feels Safe at Home: Yes Safety Concerns: Feels Safe At This Time Assistive Devices: None Review of Systems Review of Systems: 14 point review of systems completed and negative except as in HPI. Exam (Neuro) Physical Exam: General Exam: GEN: NAD, sitting down in examination bed. HEENT: No conjunctival injection, no rhinorrhea. CV: RRR on monitor, no significant edema. PULM: Nonlabored respirations on room air. Neuro Exam: MS: Awake and Alert. Oriented to person, place, and date. Speech fluent and appropriate without dysarthria or paraphasic errors. Language intact including naming, comprehension, repetition. Cognition and memory grossly intact. Attention intact. No neglect. CN: Visual ladd full, + blink to threat bilaterally. No extinction to double simultaneous stimuli. Unable to visualize fundi on fundoscopic exam. PERRLA OU. EOMI without nystagmus. Facial sensation intact to LT. Facial muscles full and symmetric. Hearing intact to finger rub bilaterally. Uvula midline with symmetric palatal elevation. SCMs and shoulder shrug normal. Tongue midline. MOTOR: Normal bulk and tone. No pronator drift. BUE strength 5/5 at deltoids, biceps, triceps, wrist flexors and extensors, and finger flexors bilaterally. RLE strength 5/5 at iliopsoas, hamstrings, quadriceps, tibialis anterior, and gastrocnemius. LLE strength 5-/5 at iliopsoas, 5-/5 hamstrings, 5/5 quadriceps, 5/5 tibialis anterior, and 5/5 gastrocnemius. REFLEXES: 1+ at biceps, triceps, brachioradialis, trace patella, and absent Achilles bilaterally. Flexor plantar responses bilaterally. SENSORY: Intact to LT throughout, no extinction to double simultaneous stimuli. COORDINATION: No dysmetria or ataxia on [id number]-qt-[id number] bilaterally. Normal Rangel bilaterally. GAIT: Deferred due to physical status. NIH STROKE SCALE 1A. Level of Consciousness (0-3) = 0 1B. LOC Questions (0-2) = 0 1C. LOC Commands (0-2) = 0 2. Best Horizontal Gaze (0-2) = 0 3. Visual Ladd (0-3) = 0 4. Facial Palsy (0-3) = 0 5. Motor Arm Right (0-4) = 0 Left (0-4) = 0 6. Motor Leg Right (0-4) = 0 Left (0-4) = 1 7. Limb Ataxia (0-2) = 0 8. Sensory (0-2) = 0 9. Best Language (0-3) = 0 10. Dysarthria (0-2) = 0 11. Extinction and Inattention (0-2) = 0 NIHSS TOTAL = 1 Results & Data ([facility]) Vital Signs (Past 12 Hours) Vital Signs Temp Pulse Resp BP Pulse Ox 01/25/20 11:37 36.9 C 68 18 129/84 94 01/25/20 07:19 36.6 C 75 18 165/89 H 94 01/25/20 04:00 36.7 C 84 20 149/79 H 92 PG Care Time/CCT Total # of Minutes Spent Total Time Spent with Patient: Total time spent is greater than 50% in coordination of care (as documented) at patient's floor/unit and/or counseling patient: Coding Level of Care Code 92084 Inpt Consult Level 5 Diagnoses HTN (hypertension) I10 DM (diabetes mellitus) E11.9 Stroke I63.9
[2020-01-25] MEDS ORDERED: WARFARIN SOD 5 MG TAB PO SCH (16:00)
[2020-01-25] MEDS ORDERED: STROKE PATIENT DISCHARGE STA (16:00)
--- NOTE | 2020-01-25 16:03 | Discharge Summary ---
Date of Service January 25, 2020 Admission HPI Per Admitting Provider Rayne Tellez is a 54 year old female who presents to the ER with left sided weakness. She reports her symptoms started on Friday. Initially found it hard to get out of the car after driving. Then noticed it was harder to get her left leg over the side of the bathtub. After this she has noticed her walking has been getting progressively worse and her daughter's boyfriend caught her 3 times yesterday. Reports feeling like her bones just disappear out of her left leg while walking. She denies any new numbness or pain (chronic diabetic neuropathy in fingers and toes). No change in speech/hearing/vision. She notes a prior "mini-stroke" 15 years ago with associated post cardiomyopathy which caused her memory and thinking to be impaired for around 6 months. Other than this no history of stroke or CVA. In the ER Head CTA concerning for severe multifocal stenosis in the right cavernous carotid and extensive plaque within the bilateral cavernous carotids. ER physician discussed this with neurology at [place] and reports no intervention required. Clearly outside of the range for TPA and contraindicated with warfarin use. Recommended aspirin 81 mg p.o. daily for 3 weeks. Principal Diagnosis Pt states she feels at her usual at present. She states she has ongoing L UE and LE weakness. She states that she cannot walk for more than a few seconds without weakness "like my knee is going to give out." She has been tolerating PO without issue. Pt denies fever, SOB, chest pain, abd pain, n/v/c/d, LE pain or swelling. She states that she had a loose bowel movement this AM, but this is her usual. Pt refusing MRI stating "I'd have to be totally out to go in the machine". She has done fine with open MRI in the past, but is not willing to attempt a closed MRI, even with ativan pre-medication. 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 She states she will agree to outpt based therapies. Discharge Exam Constitutional WD/WN, vitals as above Eyes normal visual beltrán by confrontation and + anicteric sclerae Neck normal visual inspection and trachea midline Respiratory normal respiratory effort, lungs clear to auscultation Cardiovascular Rate/Rhythm: regular rate and regular rhythm Gastrointestinal (Abdomen) Inspection/Auscultation: abdomen not distended Percussion/Palpation: abdomen soft; abdomen nontender Musculoskeletal Head/Neck/Chest: normocephalic and head atraumatic Skin no rashes, warm and dry Neurologic awake; not confused Speech / Cognition: normal speech Psychiatric A+Ox3, euthymic affect Discharge Data Allergies Allergy/AdvReac Type Severity Reaction Status Date / Time Penicillins Allergy Unknown RASH Verified 01/24/20 14:40 adhesive AdvReac Unknown RASH Verified 01/24/20 14:40 losartan AdvReac Unknown PARANOID Verified 01/24/20 14:40 Consultations 01/24/20 15:09 ED Decision to Admit Stat 01/24/20 19:33 Consult Case Management - Discharge Planning Routine Consult Neurology Routine Ordered Studies 01/24/20 13:09 CT angio head w con Stat CT angio neck with con Stat CT head/brain wo con Stat Hospital Course (1) CVA (cerebral vascular accident): R internal capsule lesion noted on CT TTE with EF 65-70% HbA1C 11.8 and lipid panel with TG 234, LDL 137, HDL 31 Start ASA 81mg PO daily Start atorvastatin 40 mg p.o. at bedtime Neurology feels pt can d/c on coumadin only as prior. No role for aspirin at thi s time. Pt refusing MRI stating "I'd have to be totally out to go in the machine". She has done fine with open MRI in the past, but is not willing to attempt a closed MRI, even with ativan pre-medication. 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 She states she will agree to outpt based therapies. Pt given script for PT/OT on d/c (2) Thyroid nodule: Incidental pickup on CT scan of left thyroid nodule TSH WNL Follow-up with PCP (3) DM (diabetes mellitus): Notably uncontrolled and patient taking medication as she wishes - takes both 50/50 and Lantus in the evening. HbA1c 11.8 Hold Metformin due to IV contrast given for CTA (4) HTN (hypertension): Continue lisinopril 40 mg p.o. daily, Lasix 40 mg p.o. daily (5) Acid reflux: Continue pantoprazole 40 mg p.o. daily (6) Anxiety: Continue venlafaxine and fluoxetine. (7) DVT prophylaxis: INR 1.8. Continue her usual warfarin dosing Of note, as part of workup from ED, pt also had neg lyme and COVID testing Total Time Total Time Spent Total Time Spent (In Minutes): >30 Total Time Includes: Examination of the Patient, Discharge Planning, Medication Reconciliation, Communication With Other Providers and Other Discharge Plan Discharge Items Patient Disposition: Home - Self-Care Reason For Visit: STROKE LIKE SYMPTOMS Discharge Diagnosis: Stroke Activity: Resume your previous activity Non-emergency contact: Primary Care Provider and Neurologist Call non-emergency contact if: you have any medication questions, your symptoms worsen and your pain is concerning for you Follow-up/Referrals: Anu Tam MD [Physician] - (4-6 weeks) Veena Carney DO [Primary Care Provider] - (2 days) Diet: Carb Consistent or DM2 Addtl Attending Provider Instructions: You will need to have an MRI as an outpatient as you cannot tolerate the enclosed MRI that we have at our facility. Your PCP will need to arrange this for you. You should be seen by your PCP in the next 2-3 days. You should follow up with Dr. Tam, the neurologist, in 4-6 weeks. You were recommended for a short rehab stay to help with your left leg weakness. Since you have other obligations that do not allow for this, you can try to work with physical and occupational therapy as an outpatient. A script was given to you on discharge as a referral for this service. Your Hemoglobin A1c was 11.8. This means that your diabetes is not under good control. You should discuss seeing a templer head with your PCP as well. Pending Studies at Discharge: No Stand-Alone Forms: Medications to Prevent Stroke, My [facility], Smoking Cessation Medications and DC Order Prescriptions: New atorvastatin 40 mg Tablet 40 mg PO HS Qty: 30 RF: 0 Continued furosemide 40 mg Tablet 40 mg PO DAILY Qty: 0 RF: 0 carvedilol 25 mg Tablet 25 mg PO DAILY Qty: 0 RF: 0 pantoprazole 40 mg Tablet,Delayed Release (Dr/Ec) 40 mg PO DAILY Qty: 30 RF: 0 lisinopril 40 mg Tablet 40 mg PO DAILY Qty: 0 RF: 0 Levemir U-100 Insulin 100 unit/mL Solution 55 unit SUBCUT HS Qty: 0 RF: 0 cholecalciferol (vitamin D3) 50 mcg (2,000 unit) Tablet 50 mcg PO DAILY Qty: 0 RF: 0 fluoxetine 40 mg capsule 40 mg PO DAILY RF: 0 carvedilol 25 mg tablet 12.5 mg PO DAILY RF: 0 venlafaxine 37.5 mg capsule,extended release 24hr 37.5 mg PO DAILY RF: 0 metformin 1,000 mg tablet 1,000 mg PO DAILY RF: 0 warfarin [Jantoven] 5 mg tablet 5 mg PO DAILY RF: 0 Humalog Mix 50-50 Insuln U-100 100 unit/mL (50-50) Suspension 55 unit SUBCUT HS RF: 0 Discharge Orders: Discharge Order (Routine); Ordered 01/25/20 Ordered By: Cynthia Herman Admission Data Admit Date/Time: 01/24/20 16:32 Attending Provider: Cynthia Herman Admit Provider: Elias Ryan Primary Care Provider: Veena Carney Other Providers: Elias Ryan ; Anu Tam Other Interventions: Discharge Summary Assessment (RN) Last Done: 01/25/20 16:19 Coding Level of Care Code D/C Day Management >30 mins Diagnoses CVA (cerebral vascular accident) I63.9 Thyroid nodule E04.1 DM (diabetes mellitus) E11.9 HTN (hypertension) I10 Acid reflux K21.9 Anxiety F41.9 DVT prophylaxis Z29.9
--- NOTE | 2020-01-25 16:34 | Pharmacy Report ---
Pharmacist Stroke Counseling - Date of Service January 25, 2020 - Scope: Pharmacy has been consulted to provide medication discharge counseling for this patient admitted with ischemic stroke as per the Pharmacist Discharge Counseling for Stroke Patients Protocol. - Medications on Discharge: Home Medications Medication Instructions Recorded Confirmed Levemir U-100 Insulin 55 unit SUBCUT HS #0 10/30/10 01/24/20 carvedilol 25 mg PO DAILY #0 10/30/10 01/24/20 cholecalciferol (vitamin D3) 50 mcg PO DAILY #0 10/30/10 01/24/20 furosemide 40 mg PO DAILY #0 10/30/10 01/24/20 lisinopril 40 mg PO DAILY #0 10/30/10 01/24/20 pantoprazole 40 mg PO DAILY #30 10/30/10 01/24/20 Humalog Mix 50-50 Insuln U-100 55 unit SUBCUT HS 01/24/20 01/24/20 carvedilol 12.5 mg PO DAILY 01/24/20 01/24/20 fluoxetine 40 mg PO DAILY 01/24/20 01/24/20 metformin 1,000 mg PO DAILY 01/24/20 01/24/20 venlafaxine 37.5 mg PO DAILY 01/24/20 01/24/20 warfarin [Jantoven] 5 mg PO DAILY 01/24/20 01/24/20 New Rx's Medication Instructions Recorded atorvastatin 40 mg PO HS #30 tab 01/25/20 - Action: The above medications, specifically ones for stroke treatment/prophylaxis, have been reviewed in detail with the patient and/or patient marketing sales representative(s) prior to discharge. This includes indication, common adverse reactions, drug interactions, and medication administration. Medication counseling has been employed using the teach-back method to ensure understanding. - Outcome: The patient and/or patient marketing sales representative(s) have demonstrated understanding of the medications. Additional comments: Pt states that she was told by neurology that she would be continuing aspirin therapy on discharge, however aspirin is not on discharge med list. Clarified with provider who also clarified with neurologist. Pt is NOT to be on aspirin on discharge since she is on warfarin. Thank you for allowing pharmacy to be involved in the care of this patient. Please call [phone] with any additional questions
[2020-01-29] MEDS ORDERED: WARFARIN SOD 2.5 MG TAB PO SCH (16:00)
== END 2020-01-25 17:17 | disposition home or self-care (01) ==
LOC: 2W 11:55 → ED 11:55 → SUATTDRO 16:32 → 2W 18:36